=== PATIENT | female | born 1945 | race Caucasian/White ===

== ENCOUNTER 2017-04-26 12:52 | Outpatient (CLI) | payer MEDICARE, OTHER ==
[2017-04-26] MEDS ORDERED: Iopamidol 370 76% 100 ML VIAL ONE (13:12)
--- NOTE | 2017-04-26 14:47 | RAD ---
CHEST TWO VIEWS: Date: 04-26-17 Comparison: None. History: Supraclavicular mass. FINDINGS: There is incompletely evaluated cervical spine hardware inferiorly. There are multiple post-surgical metallic densities overlying the right shoulder. There is no pneumothorax, pleural fluid, focal conso lidation, or alveolar edema. There is a vertically oriented small linear metallic density overlying the mid right chest wall sugge sting a small soft tissue foreign body. Clips in right upper quadrant suggest prior cholecystectomy. There is significant bilateral AC joint degenerative change with superiorly projecting osteophytes. IMPRESSION: No acute findings. Chest is better assessed on the CT exam also performed 04-26-17. POS: [facility]
--- NOTE | 2017-04-26 15:02 | CT ---
CT OF NECK SOFT TISSUES WITH CONTRAST CT OF CHEST WITH CONTRAST: Indication: Supraclavicular mass, right sided. FINDINGS: No soft tissue mass of the right supraclavicular fossa is visualized. The images aerodigestive tract reveals no intrinsic mass effect. There is heterogeneity of the thyroid gland due to streak artifact which limits assessment. Subglottic tracheal air column is patent. There is bilateral pulmonary emphy sema. No lobar consolidation, effusion, or pneumothorax. Scattered vascular disease is present. There is no evidence of thoracic aortic aneurysm. Coronary artery disease is noted. There is evidence of p rior cholecystectomy with prominence of the partially imaged ductal system which may relate to reserv oir effect. Post-operative change at the right AC joint and lateral right clavicle is present. There are osseous degenerative changes. IMPRESSION: 1. No evidence of supraclavicular mass. 2. Incidental note of pulmonary emphysema. 3. Post-operative changes at the right AC joint, lateral right clavicle with associated chronic appea ring osseous irregularity. Recommend clinical correlation as this asymmetry could relate to area of p alpable concern. 4. Evidence of vascular disease with coronary artery calcification. POS: [facility]
== END 2017-04-26 12:53 | disposition home or self-care (01) ==
LOC: CT 12:52
PROVIDERS: ATTEND Family Medicine
DX: R22.2 Localized swelling, mass and lump, trunk (principal); I25.10 Atherosclerotic heart disease of native coronary artery without angina pectoris; Z98.890 Other specified postprocedural states
CPT/HCPCS: 71046; 71260

== ENCOUNTER 2018-09-21 10:37 | Day surgery (SDC) | payer MEDICARE, OTHER ==
[2018-09-20 10:01] VITALS: BMI 20.5
[2018-09-21] MEDS ORDERED: Midazolam HCl 2 mg/2 ml Vial ONE (12:55)
[2018-09-21] MEDS ORDERED: Fentanyl 100 MCG/2 ML VIAL ONE (12:55)
[2018-09-21] MEDS ORDERED: PROPOFOL 0 ML ONE (13:05)
--- NOTE | 2018-09-21 15:50 | MRI ---
MRI CERVICAL SPINE: 09/21/18 Multiplanar and multisequential imaging obtained. INDICATIONS: Spondylosis. Neck pain. Anterior plate and screws with disc implants are noted transfixing C5, C6 and C7. Degenerative spurring at all levels. Mild anterolisthesis at C7-T1. At C3-4, disc bulge and spondylosis efface the anterior subarachnoid space. No significant cord impin gement. At C4-5, disc bulge and spondylosis efface the anterior subarachnoid space. No definite foraminal landen nosis. At C5-6, mild effacement of the anterior subarachnoid space. Evidence of left foraminal stenosis. At C6-7, mild effacement of anterior subarachnoid space. Foraminal stenosis not well assessed due to artifact. At C7-T1, anterolisthesis with posterior disc bulge and spondylosis flattening the thecal sac. No faustino dence of cord impingement. Cord signal appears normal. IMPRESSION: Degenerative and postoperative changes of the cervical spine. No significant cord impingement or cord compression. Foraminal stenosis is difficult to evaluate due to artifact from metallic appliances. CT might be of benefit to better assess foraminal stenosis. POS: [facility]
--- NOTE | 2018-09-21 15:57 | MRI ---
LUMBAR SPINE MRI WITHOUT IV CONTRAST: HISTORY: Lumbar spondylosis. Low back pain and bilateral leg pain, worse on the right side. COMPARISON: 04/09/2014. FINDINGS: There is noted to be some intrahepatic ductal dilatation. Marked generalized disk desiccation changes with ligament and facet hypertrophic changes. Schmorl's nodes including T10-T11, T11-T12, and T12-L1. Marked generalized disk desiccation changes and ligament and facet hypertrophic changes. Dextroscoliosis. T12-L1 disk: No significant canal or foraminal stenosis. L1-L2 disk: No significant canal or lateral recess or foraminal stenosis. L2-L3 disk: Significant type I end plate changes at this level. Moderate central canal and bilatera l recess stenosis and mild to moderate bilateral foraminal stenosis. L3-L4 disk: Mild right lateral recess and severe left lateral recess stenosis with moderate foramina l and severe left foraminal stenosis. L4-L5 disk: Moderate central canal and bilateral recess stenosis and bilateral foraminal stenosis, w orse on the left side. L5-S1 disk: Moderate to severe bilateral foraminal stenosis, worse on the left side. IMPRESSION: Multilevel variable severity canal, lateral recess, and foraminal stenosis as above. Type I end plat e changes at L2-L3. Other findings as above. POS: [facility]
== END 2018-09-21 15:00 | disposition home or self-care (01) ==
LOC: SDC/OP 10:37 → EDSTATUS 13:00 → SDC/OP 15:00
PROVIDERS: ATTEND Anesthesiology Pain Medicine
DX: M48.062 Spinal stenosis, lumbar region with neurogenic claudication (principal); M47.26 Other spondylosis with radiculopathy, lumbar region; M51.16 Intervertebral disc disorders with radiculopathy, lumbar region; M48.02 Spinal stenosis, cervical region; M47.812 Spondylosis without myelopathy or radiculopathy, cervical region; E78.5 Hyperlipidemia, unspecified; I10 Essential (primary) hypertension; M06.9 Rheumatoid arthritis, unspecified; F17.210 Nicotine dependence, cigarettes, uncomplicated; Z98.1 Arthrodesis status; Z88.8 Allergy status to other drugs, medicaments and biological substances; Z88.6 Allergy status to analgesic agent; Z88.5 Allergy status to narcotic agent; Z79.891 Long term (current) use of opiate analgesic; Z79.899 Other long term (current) drug therapy
CPT/HCPCS: 72141; 72148; J2250; J2704; J3010